=== PATIENT | female | born 1975 ===

== ENCOUNTER 2023-11-25 15:59 | Outpatient (CLI) | payer OTHER ==
[2023-11-25 17:44] LABS: PH,URINE 5.5 (5.0-8.0); URINE APPEARANCE Clear; URINE BILIRRUBIN Negative (NEGATIVE); URINE BLOOD Negative; URINE COLOR Yellow; URINE GLUCOSE Negative (NEGATIVE); URINE LEUKOCYTE Negative; URINE NITRATE Negative; URINE PROTEIN Trace (NEGATIVE)
[2023-11-25 17:48] LABS: URINE BACTERIA 75.5 uL (0.0-1933); URINE EPITHELIAL CELLS 6.3 uL (0.0-38.8); URINE RBC 18.7 uL (0.0-20.8); URINE WBC 2.4 uL (0.0-23.2)
[2023-11-25 17:50] LABS: HEMATOCRIT 42.5 % (36.0-45.00); HEMOGLOBIN 14.3 g/dL (12.0-15.00); MEAN CELL VOLUME 86.1 fL (80.00-100.00); MEAN CORPUSCULAR HEMOGLOBIN 28.9 pg (27.00-32.0); MEAN CORPUSCULAR HGB CONC 33.6 g/dl (32.0-36.0); PLATELET COUNT 249 K/uL (150-450); RED BLOOD COUNT 4.93 M/uL (4.00-6.00); RED CELL DISTRIBUTION WIDTH 15.6 % (11.5-14.5)
[2023-11-25 17:55] LABS: URINE KETONE 80 (NEGATIVE)
[2023-11-25 17:58] LABS: INR 1.04; PARTIAL THROMBOPLASTIN TIME 28.3 SECONDS (22.0-34.0); PROTHROMBIN TIME 10.9 SECONDS (9.0-11.5)
[2023-11-25 17:59] LABS: COL EPI 83 SECONDS (82-175)
[2023-11-25 18:02] LABS: ALBUMIN 3.8 gm/dL (3.4-5.0); BILIRUBIN TOTAL 0.54 mg/dL (0.3-1.2); CALCIUM 8.8 mg/dL (8.5-10.1); CREATININE SERUM 0.59 mg/dL (0.55-1.02); GFR 108.33; GLOBULINA 3.2 G/DL (2.4-3.5); POTASSIUM 3.8 mEq/L (3.5-5.1)
[2023-11-28] MEDS ORDERED: SYNTHROID88 MCG (11:43)
[2023-11-28] MEDS ORDERED: HYZAAR 50-12.51 EACH PO (11:44)
== END 2023-11-25 23:00 | disposition home or self-care (01) ==
LOC: LAB 15:59
PROVIDERS: ATTEND Orthopaedic Surgery
DX: D64.9 Anemia, unspecified (principal); D68.8 Other specified coagulation defects; N39.0 Urinary tract infection, site not specified; Z22.322 Carrier or suspected carrier of Methicillin resistant Staphylococcus aureus; E11.9 Type 2 diabetes mellitus without complications; Z76.89 Persons encountering health services in other specified circumstances

== ENCOUNTER 2023-11-29 05:31 | Day surgery (SDC) | payer OTHER ==
[~2023-11-29 05:31] MED LIST: HYZAAR 50-12.51 EACH PO; SYNTHROID88 MCG
[2023-11-29] MEDS ORDERED: CEFAZOLIN SODIUM 1,000 MG VIAL ONE (06:47)
[2023-11-29] MEDS ORDERED: BUPIVACAINE HCL/MPF 0.5% 30ML VIAL ONE (07:27)
[2023-11-29] MEDS ORDERED: CEFADROXIL500 MG PO (13:47)
== END 2023-11-29 17:45 | disposition home or self-care (01) ==
LOC: CIR.AMB 05:31
PROVIDERS: ATTEND Orthopaedic Surgery
DX: S93.04XA Dislocation of right ankle joint, initial encounter (principal); S93.431A Sprain of tibiofibular ligament of right ankle, initial encounter; S93.324A Dislocation of tarsometatarsal joint of right foot, initial encounter; E03.9 Hypothyroidism, unspecified
CPT/HCPCS: 27829; L8699

== ENCOUNTER 2024-01-20 12:46 | Outpatient (CLI) | payer OTHER ==
[~2024-01-20 12:46] MED LIST changes: +CEFADROXIL500 MG PO
== END 2024-01-20 12:51 | disposition home or self-care (01) ==
LOC: RAD 12:46
PROVIDERS: ATTEND Orthopaedic Surgery
DX: S93.431D Sprain of tibiofibular ligament of right ankle, subsequent encounter (principal); S82.874D Nondisplaced pilon fracture of right tibia, subsequent encounter for closed fracture with routine healing; S93.324D Dislocation of tarsometatarsal joint of right foot, subsequent encounter

== ENCOUNTER 2024-01-25 10:51 | Outpatient (CLI) | payer OTHER | END 2024-01-25 14:42 | disposition home or self-care (01) | LOC: RAD 10:51 | PROVIDERS: ATTEND Orthopaedic Surgery | DX: S93.324D Dislocation of tarsometatarsal joint of right foot, subsequent encounter (principal) ==

== ENCOUNTER → 2024-03-29 10:09 | Outpatient (CLI) | payer OTHER ==
[2024-03-29 11:51] LABS: ALBUMIN 4.1 gm/dL (3.4-5.0); BILIRUBIN TOTAL 0.37 mg/dL (0.3-1.2); CREATININE SERUM 0.75 mg/dL (0.55-1.02); GFR 81.79; GLOBULINA 3.5 G/DL (2.4-3.5); MAGNESIUM 2.6 mg/dL (1.8-2.4); PHOSPHOROUS 4.3 mg/dL (2.5-4.9); POTASSIUM 4.51 mEq/L (3.5-5.1); TOTAL PROTEIN 7.6 gm/dL (6.4-8.2)
[2024-03-30 10:05] LABS: CALCIUM IONIZED 4.9 mg/dL (4.5-5.6)
== END | disposition home or self-care (01) ==
LOC: LAB 10:09
PROVIDERS: ATTEND Orthopaedic Surgery
DX: E55.9 Vitamin D deficiency, unspecified (principal); M85.9 Disorder of bone density and structure, unspecified; E56.1 Deficiency of vitamin K; E21.3 Hyperparathyroidism, unspecified; E88.89 Other specified metabolic disorders; M81.8 Other osteoporosis without current pathological fracture

== ENCOUNTER 2024-03-29 11:01 | Outpatient (CLI) | payer OTHER | END 2024-03-29 11:09 | disposition home or self-care (01) | LOC: RAD 11:01 | PROVIDERS: ATTEND Orthopaedic Surgery | DX: S93.324D Dislocation of tarsometatarsal joint of right foot, subsequent encounter (principal) ==

== ENCOUNTER → 2024-05-30 10:58 | Outpatient (CLI) | payer OTHER | END | disposition home or self-care (01) | LOC: NUCLEAR 10:58 | DX: M81.0 Age-related osteoporosis without current pathological fracture (principal) ==

== ENCOUNTER 2024-10-04 12:54 | Outpatient (CLI) | payer OTHER | END 2024-10-04 12:56 | disposition home or self-care (01) | LOC: RAD 12:54 | PROVIDERS: ATTEND Orthopaedic Surgery | DX: S93.324D Dislocation of tarsometatarsal joint of right foot, subsequent encounter (principal); S93.431D Sprain of tibiofibular ligament of right ankle, subsequent encounter; S82.874D Nondisplaced pilon fracture of right tibia, subsequent encounter for closed fracture with routine healing ==

== ENCOUNTER 2025-03-04 09:29 | Outpatient (CLI) | payer OTHER ==
[~2025-03-04] VITALS: Ht 160 cm; Wt 70.8 kg
[2025-03-04 10:04] VITALS: BP 125/85
[2025-03-04 12:06] LABS: URINE APPEARANCE Clear; URINE BILIRRUBIN Negative (NEGATIVE); URINE BLOOD Negative; URINE COLOR Yellow; URINE GLUCOSE Negative (NEGATIVE); URINE KETONE Negative (NEGATIVE); URINE LEUKOCYTE Negative; URINE NITRATE Negative; URINE PROTEIN Negative (NEGATIVE); URINE UROBILINOGEN 0.2 E.U./dl
[2025-03-04 12:09] LABS: URINE EPITHELIAL CELLS 2.4 uL (0.0-38.8); URINE RBC 3.9 uL (0.0-20.8)
[2025-03-04 12:15] LABS: BASO % 0.5 % (0.1-1.2); EOS # 0.10 (0.04-0.54); EOS % 1.5 % (0.7-7.0); LYMPH # 3.34 (1.18-3.74); LYMPH % 50.5 % (19.3-53.1); MEAN PLATELET VOLUME 10.20 fl (9.4-12.4); MONO # 0.41 (0.24-0.82); MONO % 6.2 % (4.7-12.5); NEUT # 2.73 (1.56-6.13); NEUT % 41.1 % (34.0-71.1); RED CELL DISTRIBUTION WIDTH 14.0 % (11.6-14.4)
[2025-03-04 12:16] LABS: URINE BACTERIA 2.3 uL (0.0-1933); URINE CAST 0.00 uL (0.0-1.40); URINE WBC 1.2 uL (0.0-23.2)
[2025-03-04 12:40] LABS: INR 1.01
[2025-03-04 12:44] LABS: COL EPI 106 SECONDS (82-175)
[2025-03-04 13:22] LABS: ALT/SGPT 23.0 U/L (12-78); AST/SGOT 10.0 U/L (15-37); BILIRUBIN TOTAL 0.51 mg/dL (0.3-1.2); BUN CREA RATIO 34.0 (7.0-25.0); CREATININE SERUM 0.53 mg/dL (0.55-1.02); GFR 121.62; GLOBULINA 3.2 G/DL (2.4-3.5); GLUCOSE FASTING 92.0 mg/dL (65-100); OSMOLALITY SERUM 283.0 MOSM/KG (275-295)
== END 2025-03-04 09:44 | disposition home or self-care (01) ==
LOC: RAD 09:29
PROVIDERS: ATTEND Orthopaedic Surgery
DX: D64.9 Anemia, unspecified (principal); E88.9 Metabolic disorder, unspecified; D68.8 Other specified coagulation defects; N39.0 Urinary tract infection, site not specified; Z22.322 Carrier or suspected carrier of Methicillin resistant Staphylococcus aureus; E11.9 Type 2 diabetes mellitus without complications; I10 Essential (primary) hypertension; Z76.89 Persons encountering health services in other specified circumstances

== ENCOUNTER 2025-03-26 08:00 | Day surgery (SDC) | payer OTHER ==
[2025-03-07 14:16] VITALS: BP 125/85
[~2025-03-26] VITALS: Ht 160 cm; Wt 70.8 kg
[~2025-03-26 08:00] MED LIST changes: +HUMIRA PEN40 MG/0.2; +MOUNJARO10 MG/0.5
[2025-03-26] MEDS ORDERED: CEFAZOLIN SODIUM 1,000 MG VIAL ONE (08:22)
[2025-03-26] MEDS ORDERED: KETOROLAC TROMETHAMINE 60 MG VIAL IM ONE (11:12)
[2025-03-26] MEDS ORDERED: LIDOCAINE HCL 1%/EPINEPHRINE 20ML VIAL IJ ONE (11:12)
[2025-03-26] MEDS ORDERED: BUPIVACAINE HCL/MPF 0.5% 30ML VIAL ONE (11:12)
[2025-03-26] MEDS ORDERED: POVIDONE-IODINE 118 ML BOTT TOP ONE (11:12)
== END 2025-03-26 16:45 | disposition home or self-care (01) ==
LOC: CIR.AMB 08:00
PROVIDERS: ATTEND Orthopaedic Surgery
DX: T84.84XD Pain due to internal orthopedic prosthetic devices, implants and grafts, subsequent encounter (principal); M89.9 Disorder of bone, unspecified; M65.871 Other synovitis and tenosynovitis, right ankle and foot